=== PATIENT | male | born 1960 | race Caucasian/White ===

== ENCOUNTER 2016-05-11 07:09 | Emergency (ER) | payer OTHER ==
--- NOTE | 2016-05-11 08:38 | PROVIDER DOCUMENTATION ---
HPI-General Adult - General Chief Complaint: Hemorrhoids Stated Complaint: HEMORRHOIDS Time Seen by Provider: 05/11/16 08:04 Source: patient Allergies/Adverse Reactions: Patient Allergies Allergy/AdvReac Type Severity Reaction Status Date / Time codeine Allergy Intermediate RASH Verified 05/11/16 08:41 Home Medications: Home Medication List Medication Instructions Recorded Confirmed Last Taken Type Dibucaine 1% Ointment [Nupercainal] 1 applicatn TOP 3-4XDAY PRN PRN #1 05/11/16 Unknown Rx tube Hydrocortisone/Pramoxine [Analpram 30 gm RC TID #1 cream.appl 05/11/16 Unknown Rx Hc 2.5% Cream] No Home Medications 05/11/16 05/11/16 Unknown History - History of Present Illness -Gen Adult Nature of Presenting Problems: Says that he noticed rectal pain the last couple of days. Says that he has not had any bleeding or abdominal pain. No vomiting and has been fever free during this time. Has stated that he has had to have a bowel movement several days ago and that he had to hold it for a long time. Location of Pain/Injury: reports: other (rectum) Pain Radiation: reports: no radiation Severity: reports: mild Timing: reports: getting worse Similar Symptoms Previously?: No Recently seen or treated by another doctor?: No Review of Systems - Adult - REVIEW OF SYSTEMS - ADULT Constitutional: reports: no symptoms reported Eyes: reports: no symptoms reported Ears, Nose, Mouth & Throat: reports: no symptoms reported Cardiovascular: reports: no symptoms reported Respiratory: reports: no symptoms reported Gastrointestinal: reports: no symptoms reported, other (rectal pain) Musculoskeletal: reports: no symptoms reported Past History - Adult - PAST MEDICAL HISTORY-ADULT Review of Records: reports: Nursing Assessment Review Cardiovascular: reports: denies history Respiratory: reports: denies history Gastrointestinal: reports: denies history Physical Exam-General - PHYSICAL EXAM-ADULT Initial Vital Signs Reviewed: Yes - CONSTITUTIONAL General Appearance: appears well, other (NAD) - EYES Eyes: PERRL/EOMI - HEAD, EARS, NOSE, MOUTH & THROAT HENMT: normocephalic/atraumatic - RESPIRATORY Respiratory: chest non-tender - CARDIOVASCULAR Cardiovascular: normal peripheral pulses - GASTROINTESTINAL (ABDOMEN) Abdominal Exam: normal bowel sounds, non tender, soft, no organomegaly, other ( external hemorrhoids, non-thrombosed, no active bleeding. Small umbilical hernia.) - GENITOURINARY Male Genitalia: deferred Rectal Exam: normal rectal tone, hemorrhoids - MUSCULOSKELETAL Back Exam: normal inspection Departure - Departure Time of Disposition Order: 08:30 DIAGNOSIS: External hemorrhoids Disposition: HOME 01 Certified Medical Emergency: Emergent Condition: Stable Additional Instructions: ED Follow Up Instructions: You have been treated by a care provider in the Emergency Department. These instructions are being provided to you so you can have an understanding of how to care for yourself upon discharge. Upon discharge from the Emergency Department, you are responsible for making arrangements for follow-up care by a physician of your choice. Take all prescribed medications as directed. Return to the Emergency Department immediately for any new or worsening symptoms. You may call the Physician Referral phone number at [phone] to obtain a list of Physicians who are taking new patients. Prescriptions: Hydrocortisone/Pramoxine [Analpram Hc 2.5% Cream] 30 gm RC TID #1 cream.appl Dibucaine 1% Ointment [Nupercainal] 1 applicatn TOP 3-4XDAY PRN PRN #1 tube PRN Reason: Hemorrhoids Referrals: Fahad Malin MD [Primary Care Provider] - Instructions: Hemorrhoids, [id number], Sitz Bath, [id number]
[2016-05-11 09:06] VITALS: BP 156/102
== END 2016-05-11 09:06 | disposition home or self-care (01) ==
LOC: ED 07:09
DX: K64.4 Residual hemorrhoidal skin tags (principal); K62.89 Other specified diseases of anus and rectum; K42.9 Umbilical hernia without obstruction or gangrene